=== PATIENT | male | born 1965 | race Caucasian/White ===

== ENCOUNTER 2020-06-07 22:48 | Observation (INO) | payer MEDICARE ==
[~2020-06-07] VITALS: Ht 180.3 cm; Wt 88.6 kg
[2020-06-07] MEDS ORDERED: LOPRESSOR 225 MG/TAB PO (22:59)
[2020-06-07] MEDS ORDERED: ASPIRIN 81M81 MG/TA2 PO (23:00)
[2020-06-07] MEDS ORDERED: ZYRTEC 10MG10 MG PO (23:00)
[2020-06-07] MEDS ORDERED: SINGULAIR 110 MG/TAB PO (23:02)
[2020-06-07] MEDS ORDERED: LIPITOR 40MG TA40 MG PO (23:03)
[2020-06-07] MEDS ORDERED: LIORESAL 1010 MG/TAB PO (23:04)
[2020-06-08] VITALS (13 sets, daily range): BP systolic 110–133; BP diastolic 66–82; PULSE 68–92; TEMP 97.3–98.9
--- NOTE | 2020-06-08 00:52 | NUR ---
Patient arrived to surgical unit from [facility] via EMS at approximately 2310. No report received from [facility]. Attempted to call and left message for report, but no return call received at this time. Patient is alert and oriented x 4, and able to make needs known. Denies having pain and discomfort at this time. Had received PRN Fentanyl by EMS during transport. Peripheral INT to right hand/wrist area. Site without redness, warmth, swelling, and pain. Denies having SOB and dyspnea. LS with expiratory wheezing. Reports he has history of asthma. HRR. Capillary refill less than 3 seconds. Non-tenting skin turgor. BSAx4. Abdomen soft and non-tender. No edema to LLE. Splint/phil to RLE CDI. Voices no questions, needs, or concerns at this time. Patient NPO after midnight for surgery around 0600. Patient is aware. Resting in bed with call light within reach.
--- NOTE | 2020-06-08 06:27 | NUR ---
Patient started to have pain around 0430. Called placed to [facility]. Stated he was on his way in and would write orders. Himanshu came in and wrote orders for LR to be hund pre-op. Put on straight tubing and hooked to patient. Dr. Toussaint in to see patient as well and talked about procedure and consent was signed. Patient denies having any questions, needs, or concerns at this time. Pain medication not gien prior to patient leaving the floor. Himanshu stated that anesthesia would take care of it. Patient changed into hospital gown prior to going down. Did not want to take off pants at that time. Dr. Toussaint aware and ok with this. Left floor for surgery around 0600.
[2020-06-08] MEDS ORDERED: ASPI325T6 PO (07:09)
[2020-06-08] MEDS ORDERED: ROXICODONE 55 MG/TAB PO (07:09)
[2020-06-08] MEDS ORDERED: COLACE 100100 MG/CAP PO (07:09)
--- NOTE | 2020-06-08 08:05 | NUR ---
PATIENT BACK IN ROOM 349 POST OP RIGHT ANKLE ORIF. A&O. VSS. DENIES PAIN IN RLE. RIGHT ANKLE DRESSING IS CD&I WITH ACEWRAP AND ICE PACK INPLACE. PATIENT IS ABLE TO WIGGLES TOES TO RIGHT FOOT. SCDS TO LLE. HEAD TO TOE ASSESSMENT COMPLETE. NO C/O N/V. PATIENT TOLERATING COFFEE AND WATER WELL. BREAKFAST TRAY CALLED. IV FLUIDS INFUSING INTO RIGHT WRIST IV. ORIENTED TO ROOM. CALL LIGHT IN REACH.
--- NOTE | 2020-06-08 09:23 | NUR ---
SERA met with the patient to discuss discharge plan. The patient lives in [place] with his girlfriend, Karissa Justice (ph#[phone]). He reports independence with ADLs and does not have any DME. The patient's primary care provider is Elis Mckeon in [place] and he receives his medications from [facility]. He reports occasional difficulties affording his meds. The patient does not have a DPOA-HC, but he was interested in obtaining a form. SERA provided. The patient is not and he has four children: Safia, Ambrose, Popeye, and Timothy. The patient plans to return home with his girlfriend upon discharge. No additional needs at this time.
--- NOTE | 2020-06-08 10:36 | NUR ---
Initial visit; Patient thanked Application Development Project Manager for looking in on him and offering Prayer and to keep him in Application Development Project Manager's prayers.
--- NOTE | 2020-06-08 14:26 | NUR ---
SW asked the patient's RN for PT/OT to be ordered.
--- NOTE | 2020-06-08 20:00 | NUR ---
Patient assessed at this time. Alert and oriented x 4, and able to make needs known. Denies having pain and discomfort at this time. Peripheral INT to right wrist. Site without redness, warmth, swelling, and pain. Denies having SOB and dyspnea. LS expiratory wheezes. Respirations even and unlabored. HRR. Capillary refill less than 3 seconds. Non-tenting skin turgor. BSAx4. Abdomen soft and non-tender. No edema. Splint/Misael to RLE. Patient had ice to site that got the splint a little wet. Removed ice and wrapped splint to dry. Patient resting in bed with call light within reach. Denies having any questions, needs, or concerns at this time. High fall risk precautions in place.
--- NOTE | 2020-06-08 22:15 | NUR ---
Patient given PRN Roxicodone as requested for pain at this time.
[2020-06-09 05:47] VITALS: BP 125/76; PULSE 78; TEMP 97.5
--- NOTE | 2020-06-09 06:23 | NUR ---
Patient has denied having pain and discomfort since receiving PRN Roxicodone around 2200 las night. Has been resting in bed with call light within reach. Voices no questions, needs, or concerns at this time.
--- NOTE | 2020-06-09 07:03 | NUR ---
Pt resting with eyes closed, even non labored breathing
[2020-06-09 07:30] VITALS: BP 167/85; PULSE 86; TEMP 97.5
--- NOTE | 2020-06-09 09:00 | NUR ---
Pt doing well this morning. He states that he is having some pain in his right ankle, pain medication given. He did tolerate his breakfast with no problem. Waiting on therapy to work with him on stairs and crutches. Call light within reach, will continue to monitor
--- NOTE | 2020-06-09 10:30 | NUR ---
Therapy in working with patient at this time
--- NOTE | 2020-06-09 10:43 | NUR ---
Follow-up visit; Patient thanked Urologist for looking in on him again today and says he is feeling a lot better.
[2020-06-09 11:18] VITALS: BP 120/83; PULSE 73; TEMP 97.7
--- NOTE | 2020-06-09 11:43 | NUR ---
PT worked with the patient and recommend crutches. SERA met with the patient to discuss their recommendation and where he can obtain the crutches. The patient would like to order crutches through his insurance and was agreeable to get them from [facility]. SERA attempted to contact the PA with the patient's attending to obtain a script for the crutches. A nurse answered the PA's phone and reports that him and Dr. Toussaint are in surgery right now. She will leave them a message. SERA placed the script on the patient's chart and updated the patient's RN on the above information. SERA contacted and faxed the patient's facesheet and clinicals to Rosie at [facility]. Awaiting script.
--- NOTE | 2020-06-09 14:00 | NUR ---
Pt doing well. Pain medication working well for him. He has worked with therapy with his crutches. Reports that he has several stairs to use. Suggested bringing a commode to the main floor for use. No other needs, will continue to monitor
--- NOTE | 2020-06-09 14:45 | NUR ---
SERA received a voicemail from the RN that picked up Himanshu's phone. The RN reports that Himanshu and Dr. Toussaint will not be coming up to the hospital today and to contact [facility]. SERA contacted [facility]. Dr. Toussaint's RN was busy at that moment. SERA left a message with the assistant infant toddler teacher. SERA faxed the crutches script to [facility] and asked that they fax the script back to the surgical unit once Dr. Toussaint or Himanshu sign the form. SERA contacted and updated Lillie at [facility]. Lillie reports that the patient will have to sign a form stating that he would be reliable for the costs of the crutches if the script does not get signed. SERA met with the patient to inform. The patient verbalized understanding and was agreeable to sign [facility]'s form. SERA updated Rosie at [facility]. [facility] plans to deliver the crutches to his room today. The patient is to discharge back home with his girlfriend today, 06/09. No additional needs at this time.
[2020-06-09 16:21] VITALS: BP 130/80; PULSE 80; TEMP 98.3
--- NOTE | 2020-06-09 17:00 | NUR ---
Reviewed discharge instructions with patient to include follow up appointment, prescriptions and activity. No questions at this time.
--- NOTE | 2020-06-09 18:07 | NUR ---
Went over discharge instructions again with significant other. INT removed from wrist, escorted out at this time
== END 2020-06-09 18:10 | disposition home or self-care (01) ==
LOC: SDCO 22:48 → SURG 22:52 → SDCO 22:53 → SURG 22:53
PROVIDERS: ADMIT Orthopaedic Surgery Sports Medicine
DX: S93.04XA Dislocation of right ankle joint, initial encounter (principal); J45.909 Unspecified asthma, uncomplicated; E78.00 Pure hypercholesterolemia, unspecified; I25.10 Atherosclerotic heart disease of native coronary artery without angina pectoris; I10 Essential (primary) hypertension; F17.210 Nicotine dependence, cigarettes, uncomplicated; Z88.5 Allergy status to narcotic agent
CPT/HCPCS: OP; A9284; C1713; J0690; J1100; J1885; J2250; J2405; J2704; J3010; J7120